=== PATIENT | male | born 1980 | race Caucasian/White ===

== ENCOUNTER 2020-12-28 00:13 | Emergency (ER) | payer OTHER ==
[~2020-12-28] VITALS: Ht 167.6 cm; Wt 100.0 kg
[2020-12-28 00:13] VITALS: BP 131/69
[2020-12-28] MEDS ORDERED: RABIES VACCINE (PCEC)/PF 2.5 UNITS/ML SYRINGE IM. ONE (00:45)
[2020-12-28] MEDS ORDERED: RABIES IMMUNE GLOBULIN/PF 300 UNITS/ML 5 ML VIAL IM. ONE (00:45)
== END 2020-12-28 01:40 | disposition home or self-care (01) ==
LOC: EMS 00:14
DX: S01.25XA Open bite of nose, initial encounter (principal); W54.0XXA Bitten by dog, initial encounter; Y93.89 Activity, other specified; Y92.89 Other specified places as the place of occurrence of the external cause; Y99.8 Other external cause status
CPT/HCPCS: 90375; 90471; 90675; 96372; 99284

== ENCOUNTER 2021-01-01 00:32 | Emergency (ER) | payer OTHER ==
[~2021-01-01] VITALS: Ht 167.6 cm; Wt 91.8 kg
[2021-01-01] MEDS ORDERED: RABIES VACCINE (PCEC)/PF 2.5 UNITS/ML SYRINGE IM. ONE (01:30)
[2021-01-01 02:06] VITALS: BP 149/75
== END 2021-01-01 02:06 | disposition home or self-care (01) ==
LOC: EMS 00:33
DX: S01.25XA Open bite of nose, initial encounter (principal); W54.0XXA Bitten by dog, initial encounter; Y93.89 Activity, other specified; Y92.89 Other specified places as the place of occurrence of the external cause; Y99.8 Other external cause status
CPT/HCPCS: 90675; 99281

== ENCOUNTER 2021-01-19 20:41 | Emergency (ER) | payer OTHER ==
[~2021-01-19] VITALS: Ht 167.6 cm; Wt 100.0 kg
[2021-01-19 22:11] VITALS: BP 123/79
[2021-01-19] MEDS ORDERED: RABIES VACCINE (PCEC)/PF 2.5 UNITS/ML SYRINGE IM. ONE (22:15)
== END 2021-01-19 22:52 | disposition home or self-care (01) ==
LOC: EMS 20:44
DX: S01.85XD Open bite of other part of head, subsequent encounter (principal); X58.XXXD Exposure to other specified factors, subsequent encounter
CPT/HCPCS: 90471; 90675; 99281